=== PATIENT | male | born 1950 | race Caucasian/White ===

== ENCOUNTER 2017-05-24 16:01 | Emergency (ER) | payer MEDICARE, BC ==
[~2017-05-24] VITALS: Ht 188 cm; Wt 113.0 kg
[~2017-05-24 16:01] MED LIST: ADDE30TA PO; AMBI10TA PO; ASPI-99 PO; GLUC500C56 PO; MIGRAINE MED; TAB-TAB PO; TAMS0.4C67 PO
[2017-05-24 16:03] VITALS: BP 170/87; PULSE 90; RESP 18; TEMP 98.3; O2SAT 98
[2017-05-24] MEDS ORDERED: TRIA37.53 PO (16:24)
[2017-05-24] MEDS ORDERED: LORA-400 PO (16:24)
[2017-05-24] MEDS ORDERED: TAMS0.4C4 PO (16:24)
[2017-05-24] MEDS ORDERED: OMEP20TA93 PO (16:24)
[2017-05-24] MEDS ORDERED: FLUT1SPR5 EACH NARE (16:24)
[2017-05-24] MEDS ORDERED: VENTAER INH (16:24)
[2017-05-24] MEDS ORDERED: ADDE20 PO (16:24)
[2017-05-24] MEDS ORDERED: TOPI25TA7 PO (16:24)
[2017-05-24] MEDS ORDERED: AMBI5TAB PO (16:24)
--- NOTE | 2017-05-24 16:31 | PD ---
HPI Chief Complaint: Respiratory Symptoms Time Seen by Provider: 16:17 Travel History International Travel<30 days: No Contact w/Intl Traveler<30days: No Traveled to known affect area: No History of Present Illness HPI This patient complains of shortness of breath. Duration 2 days. Severity is mild to moderate. No alleviating factors. No Exacerbating factors. He has history of COPD and chronic bronchitis. He has quit smoking. No fever. He is not coughing. He does have some runny nose and congestion. No chest pain. No pleuritic pain. PFSH Past Medical History ADD: Yes Blood Disorders: Yes Heart Rhythm Problems: No Cancer: No Cardiac Catheterization: No Cardiovascular Problems: Yes (HTN) High Cholesterol: No Congestive Heart Failure: No COPD: Yes Diabetes: No Diminished Hearing: No GERD: Yes Glaucoma: No Genitourinary: Yes (BPH ) Hepatitis: No Hiatal Hernia: No Hypertension: Yes Medical other: Yes (GERD) Respiratory: Yes (COPD, SLEEP APNEA) Thyroid Disease: No Influenza Vaccination: Yes ?: Not Past Surgical History Coronary Artery Bypass Graft: No Pacemaker: No Other Surgery: Yes (RT WRIST SURGERY) Social History Alcohol Use: Yes (OCC) Tobacco Use: Yes (QUIT 2006 , CIGARS DAILY) Substance Use: No Allergies-Medications (Allergen,Severity, Reaction): Coded Allergies: No Known Allergies (Unverified Adverse Reaction, Unknown, 05/24/17) Reported Meds & Prescriptions Reported Meds & Active Scripts Active Reported Omeprazole 20 Mg Tab 20 Mg PO DAILY Ambien (Zolpidem Tartrate) 5 Mg Tab 5 Mg PO HS PRN Claritin-D 24 HR (Loratadine-Pseudoephedrine 24 HR) 10-240 Mg Tab 1 Tab PO DAILY Ventolin Hfa 18 GM Inh (Albuterol Sulfate) 90 Mcg/Act Aer 2 Puff INH Q4-6H PRN Flonase Nasal [place] (Fluticasone Nasal [place]) 50 Mcg/Act [place] 50 Mcg EACH NARE BID Tamsulosin (Tamsulosin HCl) 0.4 Mg Cap 0.4 Mg PO HS Topiramate 25 Mg Tab 25 Mg PO BID Adderall (Amphetamine-Dextroamphetamine) 20 Mg Tab 20 Mg PO DAILY@12 Take at 12 noon. Triamterene-Hydrochlorothiazide 37.5-25 Mg Cap 1 Cap PO DAILY Review of Systems General / Constitutional: No: Fever Eyes: No: Visual changes HENT: Positive: Rhinorrhea, Congestion, No: Headaches Cardiovascular: No: Chest Pain or Discomfort Respiratory: Positive: Shortness of Breath Gastrointestinal: No: Abdominal Pain Genitourinary: No: Dysuria Musculoskeletal: No: Pain Skin: No Rash Neurologic: No: Weakness Psychiatric: No: Depression Endocrine: No: Polydipsia Hematologic/Lymphatic: No: Easy Bruising Physical Exam Narrative GENERAL: Well-nourished, well-developed patient in no apparent distress. SKIN: Focused skin assessment reveals no rash and nodules. Skin is Warm and dry. HEAD: Atraumatic. Normocephalic. EYES: Pupils equal and round. No scleral icterus. No injection or drainage. ENT: No nasal bleeding or discharge. Mucous membranes pink and moist. NECK: Trachea midline. No JVD. CARDIOVASCULAR: Regular rate and rhythm. No murmur appreciated. RESPIRATORY: No accessory muscle use. Clear to auscultation. Breath sounds equal bilaterally. GASTROINTESTINAL: Abdomen soft, non-tender, nondistended. Hepatic and splenic margins not palpable. MUSCULOSKELETAL: No obvious deformities. No clubbing. No cyanosis. No edema. NEUROLOGICAL: Awake and alert. No obvious cranial nerve deficits. Motor grossly within normal limits. Normal speech. PSYCHIATRIC: Appropriate mood and affect; insight and judgment normal. Data Data Last Documented VS Vital Signs Date Time Temp Pulse Resp B/P (MAP) Pulse Ox O2 Delivery O2 Flow Rate FiO2 05/24/17 16:46 80 18 148/73 (98) 98 Room Air 05/24/17 16:24 98 05/24/17 16:03 98.3 Orders Orders Chest, Single Ap (05/24/17 ) Electrocardiogram (05/24/17 ) [facility] Medical Decision Making Medical Screen Exam Complete: Yes Emergency Medical Condition: Yes Medical Record Reviewed: Yes Differential Diagnosis Differential diagnosis includes COPD, asthma, pneumonia, bronchitis, CHF Narrative Course I have reviewed the patient's electronic medical record. I reviewed his EKG shows sinus rhythm with occasional ectopic beats. No ST elevation I reviewed his chest x-ray is normal Patient looks clinically well with room air saturation of 99% and no evident dyspnea. Lungs are clear. He does have some viral respiratory infection symptoms such as runny nose and congestion. I have very low clinical suspicion of PE. He scores a 0 on a modified well's criteria. I don't feel he needs emergent workup for this. He is going to call his primary physician Friday for follow-up. If he has worsening he will return for more invasive evaluation. Diagnosis Primary Impression: Shortness of breath Additional Instructions: The patient was advised to follow up with their physician and return if they worsen. Med/Other Pt SpecificInfo: Other Disposition: 01 DISCHARGE HOME Condition: Stable Harsh Moulton MD May 24, 2017 16:31
[2017-05-24 16:46] VITALS: BP 148/73; PULSE 80; RESP 18; O2SAT 98
--- NOTE | 2017-05-24 16:47 | RADRPT ---
EXAM DATE/TIME: 05/24/2017 16:36 [facility] COMPARISON: No previous studies available for comparison. INDICATIONS : Short of breath MEDICAL HISTORY : Chronic obstructive pulmonary disease. SURGICAL HISTORY : None. ENCOUNTER: Initial ACUITY: 1 day PAIN SCORE: 0/10 LOCATION: Bilateral chest FINDINGS: A single view of the chest demonstrates the lungs to be symmetrically aerated without evidence of mas s, infiltrate or effusion. The cardiomediastinal contours are unremarkable. Osseous structures are intact. CONCLUSION: Normal examination. Kalen Anthony MD on May 24, 2017 at 16:46 Board Certified Radiologist. This report was verified electronically.
--- NOTE | 2017-05-25 12:53 | EKG ---
Date Performed: 05/24/2017 Time Performed: 16:34:01 PTAGE: 66 years EKG: Sinus rhythm WITH FREQUENT SUPRAVENTRICULAR PREMATURE COMPLEXES LOW QRS VOLTAGE IN PRECORDIAL LEADS NONSPECIFIC T -WAVE ABNORMALITY Compared to prior tracing no significant change ABNORMAL RHYTHM ECG PREVIOUS TRACING : 05/25/2013 09.29 DOCTOR: Todd Martin Interpretating Date/Time 05/25/2017 12:52:36
== END 2017-05-24 17:10 | disposition home or self-care (01) ==
LOC: PHED 16:01
DX: R06.02 Shortness of breath (principal); J44.9 Chronic obstructive pulmonary disease, unspecified; I10 Essential (primary) hypertension; R94.31 Abnormal electrocardiogram [ECG] [EKG]; Z87.891 Personal history of nicotine dependence
CPT/HCPCS: 71010; 93005; 99284

== ENCOUNTER → 2017-10-15 | Outpatient (CLI) | payer MEDICARE, BC ==
[~2017-10-15] MED LIST changes: +ADDE20 PO; -ADDE30TA PO; -AMBI10TA PO; +AMBI5TAB PO; -ASPI-99 PO; +FLUT1SPR5 EACH NARE; -GLUC500C56 PO; +LORA-400 PO; -MIGRAINE MED; +OMEP20TA93 PO; +SINCALIDE 5 MCG/5 ML VIAL IV ONE; -TAB-TAB PO; +TAMS0.4C4 PO; -TAMS0.4C67 PO; +TOPI25TA7 PO; +TRIA37.53 PO; +VENTAER INH
--- NOTE | 2017-10-15 14:23 | RADRPT ---
EXAM DATE/TIME: 10/15/2017 11:07 [facility] COMPARISON: No previous studies available for comparison. INDICATIONS : Right upper quadrant pain. DOSE: 4 mCi Tc99m Mebrofenin IV MEDICATION: 2.2 mcg Cholecystokinin IV; No symptomatic response. Cholecystokinin was administered by slow infusion over 8 minutes beginning at 60 minutes. MEDICAL HISTORY : Hypertension. SURGICAL HISTORY : None. ENCOUNTER: Initial ACUITY: 1 week PAIN SCALE: 2/10 LOCATION: Right upper quadrant TECHNIQUE: Following the intravenous administration of radiotracer, dynamic sequential image were performed with continuous acquisition. Time-activity curves were generated. FINDINGS: HEPATIC KINETICS: There is prompt uptake of radiotracer in the liver. No focal defects are seen. There is normal rate of washout from the hepatic parenchyma. BILIARY CLEARANCE: Activity is first seen in the extrahepatic biliary system at 5 minutes. There is normal excretion in to the small bowel. GALLBLADDER: Activity is first seen in the gallbladder at 15 minutes. POST CHOLECYSTOKININ: After Cholecystokinin administration, there is no significant excretion from the gallbladder with a 2 0-25% ejection fraction. Common bile duct kinetics are normal and there is no evidence of biliary o bstruction. BILIARY ENTERIC REFLUX: None observed. CLINICAL: The patient was asymptomatic after Cholecystokinin administration. CONCLUSION: 1. Normal hepatic uptake with patent common bile duct. 2. Patent cystic duct. 3. Reduced gallbladder ejection fraction of 20-25%. Jamil Holm MD on October 15, 2017 at 13:57 Board Certified Radiologist. This report was verified electronically.
== END ==
LOC: HRAD 08:47
PROVIDERS: ATTEND Surgery
DX: R10.9 Unspecified abdominal pain (principal)
CPT/HCPCS: 78227; A9537; J2805

== ENCOUNTER → 2017-11-18 | Day surgery (SDC) | payer MEDICARE, BC ==
[~2017-11-18] VITALS: Ht 188 cm; Wt 108.8 kg
[~2017-11-18] MED LIST changes: +*ONDANSETRON 4 MG VIAL PERIprocedural Use ONLY ONE; +*morphine SULFATE 8 MG/ML PERIprocedure ONLY ONE; +AMLO10TA2 PO; +BUPIVACAINE/EPINEPHRINE 0.25% 50 ML VIAL ONE; +CHLORHEXIDINE GLUCONATE 2 % 1 PACK (2 CLOTHS) TOPICAL PRN; +DEXAMETHASONE SOD PHOS 4 MG/ML VIAL IV ONE; +DO NOT ADM ANY ANTICOAGULANT DRUGS PRN; +GLYCOPYRROLATE 1 MG/5 ML SYRINGE IV PUSH ONE; +LACTATED RINGER'S 1000 ML INJ 1,000 ML IV ONE; +LACTATED RINGER'S 1000 ML IV PRN; +LIDOCAINE HCL 1% PF 5 ML SYRINGE OTHER ONE; +METOPROLOL TARTRATE 25 MG TAB PO PRN; +NEOSTIGMINE 5 MG/5 ML SYRINGE IV PUSH ONE; +ONDANSETRON HCL 4 MG/2 ML VIAL IV ONE; +ONDANSETRON ODT 4 MG TAB PO ONE; +POVIDONE IODINE 5% (ANTISEPSIS KIT) 4 APPLICATIONS EACH NARE PRN; +PROPOFOL 200 MG/20 ML AMP IV ONE; +RANI150T PO; +ROCURONIUM INJ 50 MG/5 ML SYRINGE IV PUSH ONE; -SINCALIDE 5 MCG/5 ML VIAL IV ONE; +SODIUM CHLORID 0.9% 500 ML IV PRN; +SUGAMMADEX SODIUM 200 MG/2 ML VIAL IV PUSH ONE; +ceFAZolin 2 GM PREMIX 50 ML ONE; +ceFAZolin 2 GM/DEX PREMIX 50 ML IV SCH; +ePHEDrine/NS 25 MG/5 ML SYRINGE IV ONE; +fentaNYL CITRATE 250 MCG/5 ML AMP ONE; +oxyCODONE/ACETAMINOPHEN 5 MG/325 MG TAB PO ONE
[2017-11-18 10:53] LABS: BASOPHIL # 0.1 TH/MM3 (0-0.2); EOSINOPHIL # 0.2 TH/MM3 (0-0.4); EOSINOPHIL % 3.7 % (0.0-4.0); HEMATOCRIT 31.6 % (39.0-51.0); HEMOGLOBIN 10.6 GM/DL (13.0-17.0); LYMPH % 30.7 % (9.0-44.0); LYMPHOCYTE # 1.7 TH/MM3 (1.0-4.8); MEAN CELL VOLUME 79.5 FL (80.0-100.0); MEAN CORPUSCULAR HEMOGLOBIN 26.6 PG (27.0-34.0); MEAN CORPUSCULAR HGB CONC 33.5 % (32.0-36.0); MEAN PLATELET VOLUME 7.5 FL (7.0-11.0); MONO % 10.1 % (0.0-8.0); MONOCYTE # 0.6 TH/MM3 (0-0.9); NEUT % 53.5 % (16.0-70.0); PLATELET COUNT 265 TH/MM3 (150-450); RED BLOOD COUNT 3.98 MIL/MM3 (4.50-5.90); RED CELL DISTRIBUTION WIDTH 14.9 % (11.6-17.2); WHITE BLOOD COUNT 5.6 TH/MM3 (4.0-11.0)
--- NOTE | 2017-11-18 10:56 | HHI.PR ---
Immediate Post Op Note Procedure Date: November 18, 2017 Pre Op Diagnosis: symptomatic cholelithiasis Post Op Diagnosis: same Surgeon: Endy Herrera MD Tank Bottom Assembler(s): see or sheet Procedure: lap joseph Findings: gallbladder with stones Complications: none Specimen(s) removed: gallbladder Estimated blood loss: 5cc Anesthesia: General Drains: None Patient to: PACU Patient Condition: Good Endy Herrera MD November 18, 2017 10:56
[2017-11-18 11:52] LABS: BLOOD UREA NITROGEN 14 MG/DL (7-18); CREATININE 1.24 MG/DL (0.60-1.30); GLOMERULAR FILTRATION RATE 58 ML/MIN (>89)
[2017-11-18 11:53] LABS: ALKALINE PHOSPHATASE 70 U/L (45-117); ALT (GPT) 32 U/L (12-78); AST (GOT) 21 U/L (15-37); BICARBONATE 24.6 MEQ/L (21.0-32.0); CALCIUM 8.6 MG/DL (8.5-10.1); CHLORIDE 108 MEQ/L (98-107); DIRECT BILIRUBIN ADULT LESS THAN 0.1 MG/DL (0.0-0.2); GLUCOSE,RANDOM 102 MG/DL (74-106); INDIRECT BILIRUBIN 0.2 MG/DL (0.0-0.8); SODIUM (NA) 141 MEQ/L (136-145); TOTAL BILIRUBIN ADULT 0.3 MG/DL (0.2-1.0); TOTAL PROTEIN 7.4 GM/DL (6.4-8.2)
--- NOTE | 2017-11-18 13:11 | MP ---
cc: Endy Herrera MD DATE OF OPERATION: 11/18/2017 DATE OF PROCEDURE: 11/18/2017. PREOPERATIVE DIAGNOSIS: Abdominal pain, biliary colic, symptomatic cholelithiasis. POSTOPERATIVE DIAGNOSIS: Abdominal pain, biliary colic, symptomatic cholelithiasis. PROCEDURE PERFORMED: Laparoscopic cholecystectomy. SURGEON: Dr. Endy Herrera NET COORDINATOR: See OR sheet. ANESTHESIA: GETA. IV FLUIDS: See anesthesia sheet. ESTIMATED BLOOD LOSS: 5 mL DRAINS: None. COMPLICATIONS: None. WOUND CLASSIFICATION: Clean, contaminated. SPECIMENS: Gallbladder. FINDINGS: Distended gallbladder, minimal adhesions especially to the infundibulum. Small gallstones. INDICATIONS: The patient is a 67-year-old male who presents with abdominal discomfort. He had further workup including a CT scan and HIDA scan. The CT and HIDA confirmed gallstones present and a bad functioning gallbladder. DETAILS OF PROCEDURE: The patient was taken to the operating suite, placed in supine position. He was prepped and draped in the usual sterile fashion after induction of general endotracheal anesthesia. A brief timeout was done stating correct patient, procedure and surgical. We were all in agreement with this. Attention was first directed to the umbilicus where local anesthetic was injected. A small stab angela incision was made with an 11 blade. A 5 mm Optiview port was used to enter the abdomen safely, the abdomen insufflated to 15 mm pneumoperitoneum. On cursory inspection, there was no evidence of injury. Three other ports were placed, one 12 mm epigastric, followed by two 5 mm right subcostal ports. The patient was placed in reverse Trendelenburg, airplaned to the left. The gallbladder was identified. Minimal adhesions after the fundus was grasped and retracted cephalad to the infundibulum were taken down with Bovie electrocautery. Dissection was done with a hook Bovie electrocautery and a [place] grasper. The cystic duct and cystic artery were dissected out in the usual manner. Two clips were placed proximal and 1 distal on both the cystic duct and the cystic artery. EndoShears were used to transect the cystic duct and the cystic artery. The gallbladder was removed from the gallbladder fossa with hook Bovie electrocautery. Small bleeding point on the liver. A clip was placed for hemostasis. The gallbladder was placed in EndoCatch bag and removed from the abdomen through the epigastric port. Ray-Elvis used to absorb any excess blood and this was dry and a small piece of Surgicel was placed in the gallbladder fossa. No evidence of bile leaking and hemostasis was appropriate. Next, the pneumoperitoneum was removed. The ports were removed. The epigastric port was closed with 0 Vicryl. The rest of the ports and the subcuticular sutures were done with 4-0 Monocryl. All lap and instrument counts were correct at the end of the procedure. Sterile dressings were placed including Mastisol and Steri-Strips. The patient was extubated and taken to PACU. No complication. MD JOSIANE Smith/MANOJ , 12:53 PM , 01:09 PM
[2017-11-18 13:56] VITALS: BP 118/67; PULSE 84; RESP 18; TEMP 97.6; O2SAT 96
== END | disposition home or self-care (01) ==
LOC: HSDC 09:16
PROVIDERS: ATTEND Surgery
DX: K80.10 Calculus of gallbladder with chronic cholecystitis without obstruction (principal); J44.9 Chronic obstructive pulmonary disease, unspecified; I10 Essential (primary) hypertension; G47.30 Sleep apnea, unspecified; D68.9 Coagulation defect, unspecified; K21.9 Gastro-esophageal reflux disease without esophagitis; K27.9 Peptic ulcer, site unspecified, unspecified as acute or chronic, without hemorrhage or perforation; F98.8 Other specified behavioral and emotional disorders with onset usually occurring in childhood and adolescence; Z01.818 Encounter for other preprocedural examination
CPT/HCPCS: 00790; 47562; 80048; 80076; 85025; 86850; 86900; 86901; 86920; 88304; J1100; J2270; J2405; J2710; J3010; J7120; J0690